=== PATIENT | male | born 1935 | race Caucasian/White ===

== ENCOUNTER 2016-09-12 11:14 | Emergency (ER) | payer MEDICARE ==
[2016-09-12] MEDS ORDERED: NS 0.9% 1000 ML* 3,000 ML IV ONE (12:11)
[2016-09-12 13:00] LABS: Troponin I 0.01 ng/mL (<0.04)
[2016-09-12] MEDS ORDERED: Iodixanol* (CONTRAST) 320 MG/ML 100 ML SDV IV ONE (13:23)
[2016-09-12 13:46] VITALS: BP 128/90
--- NOTE | 2016-09-12 14:19 | RAD ---
HISTORY: Tachycardia, elevated d-dimer COMPARISONS: None TECHNIQUE: Multiple contiguous axial CT scans of the chest were obtained after the administration of nonionic intravenous contrast, timed to the pulmonary arterial phase of contrast enhancement.. Coronal and sagittal multiplanar reformations are also submitted for review. FINDINGS: NECK AND THYROID: The lower neck and thyroid are unremarkable. CHEST WALL: There is no lower cervical, axillary, or supraclavicular lymphadenopathy by size criteria. HEART AND PERICARDIUM: The heart is unremarkable. AORTA AND PULMONARY VASCULATURE: There is no pulmonary arterial filling defect to suggest pulmonary embolism. There is no linear filling defect within the aorta to suggest aortic dissection. MEDIASTINUM: There is no mediastinal lymphadenopathy by size criteria. KELI: There is no hilar lymphadenopathy by size criteria. AIRWAY AND ESOPHAGUS: The airway is unremarkable, without endobronchial filling defect. The esophagus is grossly normal. LUNG PARENCHYMA: On axial image 27, there is a 0.3 cm nodule of the right lower lobe. There is minimal dependent atelectasis. PLEURA: No pleural abnormalities are noted. UPPER ABDOMEN: A simple hepatic cyst is noted. There is moderate hiatal hernia BONES AND SOFT TISSUES: Mild degenerative changes are noted OTHER: None. IMPRESSION: 1. NO PULMONARY ARTERIAL FILLING DEFECT TO SUGGEST PULMONARY WAS. 2. 0.3 CM NODULE OF THE RIGHT LOWER LOBE THE RECOMMENDATIONS FOR FOLLOWUP AND MANAGEMENT OF AN INCIDENTALLY DETECTED PULMONARY NODULE LESS THAN OR EQUAL TO 4 MM IN SIZE, IN A PATIENT WITHOUT A HISTORY OF MALIGNANCY, INCLUDE NO FOLLOWUP FOR A LOW-RISK PATIENT OR FOLLOWUP CT IN 12 MONTHS FOR A HIGH RISK PATIENT. 3. HIATAL HERNIA NOTES: SIZE = AVERAGE LENGTH AND WIDTH; HIGH RISK IS DEFINED A HISTORY OF SMOKING OR OTHER KNOW RISK FACTORS FOR LUNG CANCER; LOW RISK IS DEFINED MINIMAL OR ABSENT HISTORY OF SMOKING OR OTHER KNOWN RISK FACTORS. NODULES WITH A GROUND GLASS COMPONENT MAY REQUIRE LONGER FOLLOW UP TO EXCLUDE INDOLENT ADENOCARCINOMA.
--- NOTE | 2016-09-14 07:49 | ED ---
Cody Dela Cruz Billy, scribed for Regis Newell MD on 09/12/16 at 1243 . Complex/Multi-Sys Presentation - HPI Summary HPI Summary: Patient is an 81 year-old male coming to [facility] for evaluation of an episode of diffuse shaking this morning. He states that the episode lasted approximately 20 minutes, and he said it felt exactly like a a prior episode in February 2015 where he was ultimately diagnosed as sepsis. Patient's measured his temperature with a home thermometer at 94F. He also reports an ongoing cough with clear sputum. Patient denies any subjective fever or chills. Denies CP, SOB , N/V/D, rashes, dysuria, or myalgia. He states that he feels asymptomatic at this time in the ED. He had a flu shot in the last year. Patient recently returned from [place] yesterday. - History Of Current Complaint Chief Complaint: EDGeneral Time Seen by Provider: 09/12/16 12:00 Hx Obtained From: Patient Onset/Duration: Gradual Onset, Lasting Minutes, Resolved Timing: Constant Severity Currently: None Severity Initially: Moderate Aggravating Factor(s): none Alleviating Factor(s): none Associated Signs And Symptoms: Positive: Cough. Negative: Nausea, Vomiting, Diarrhea, Dysuria, Fever, Diaphoresis - Allergies/Home Medications Allergies/Adverse Reactions: Allergies Allergy/AdvReac Type Severity Reaction Status Date / Time No Known Allergies Allergy Verified 05/24/15 07:09 Home Medications: Home Medications Aspirin EC Low Dose* [Ecotrin EC Low Dose 81 MG*] 81 mg PO DAILY 09/12/16 [ History Confirmed 09/12/16] Cholecalciferol [Vitamin D] 1,000 unit PO DAILY 09/12/16 [History Confirmed ] Lisinopril [Lisinopril 40 MG-] 40 mg PO DAILY 09/12/16 [History Confirmed ] Simvastatin TAB(NF) [Zocor(NF)] 20 mg PO BEDTIME 09/12/16 [History Confirmed ] PMH/Surg Hx/FS Hx/Imm Hx Endocrine/Hematology History: Denies: Hx Diabetes Cardiovascular History: Reports: Hx Hypercholesterolemia, Hx Hypertension - ON MEDICATION FOR Respiratory History: Denies: Hx Asthma, Hx Chronic Obstructive Pulmonary Disease (COPD) Sensory History: Reports: Hx Cataracts, Hx Contacts or Glasses - GLASSES-READING , Hx Hearing Aid - BILATERAL Opthamlomology History: Reports: Hx Cataracts, Hx Contacts or Glasses - GLASSES- READING - Surgical History Surgery Procedure, Year, and Place: 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 2008-RIGHT CATARACT REMOVAL- [place]. TONSILLECTOMY X 2-1941,1964. GALLBLADDER REMOVED- FOR ECOLI INFECTION. BLADDER CYSTOSCOPY- [place] Hx Anesthesia Reactions: Yes - 194-[facility] Infectious Disease History: Reports: Traveled Outside the [place] in Last 30 Days - [place] - Family History Known Family History: Positive: Cardiac Disease - Social History Alcohol Use: Weekly Alcohol Amount: 1-2 DRINKS PER WEEK Substance Use Type: Reports: None Smoking Status (MU): Never Smoked Tobacco Review of Systems Positive: Other - shaking. Negative: Fever, Chills, Skin Diaphoresis Negative: Chest Pain Positive: Cough. Negative: Shortness Of Breath Negative: Vomiting, Diarrhea, Nausea Negative: Myalgia Negative: Rash All Other Systems Reviewed And Are Negative: Yes Physical Exam - Summary Physical Exam Summary: The patient is well-nourished in no acute distress and in no acute pain. The skin is warm and dry and skin color reflects adequate perfusion. HEENT: The head is normocephalic and atraumatic. The pupils are equal and reactive. The conjunctivae are clear and without drainage. Nares are patent and without drainage. Mouth reveals moist mucous membranes and the throat is without erythema and exudate. The external ears are intact. The ear canals are patent and without drainage. The tympanic membranes are intact. Neck is supple with full range of motion and non-tender. There are no carotid bruits. There is no neck vein distension. Respiratory: Chest is non-tender. Diffuse wheezing. Cardiovascular: Heart is regularly tachycardic. There is no murmur or rub auscultated. There is no peripheral edema and pulses are symmetrical and equal. Abdomen: The abdomen is soft and non-tender. There are normal bowel sounds heard in all four quadrants and there is no organomegaly palpated. Musculoskeletal: There is no back pain noted. Extremities are non-tender with full range of motion. There is good capillary refill. There is no peripheral edema or calf tenderness elicited. Neurological: Patient is alert and oriented to person, place and time. The patient has symmetrical motor strength in all four extremities. Cranial nerves are grossly intact. Deep tendon reflexes are symmetrical and equal in all four extremities. Psychiatric: The patient has an appropriate affect and does not exhibit any anxiety or depression. Triage Information Reviewed: Yes Vital Signs On Initial Exam: Initial Vitals Temp Pulse Resp BP Pulse Ox 98.1 F 92 18 156/85 100 09/12/16 11:18 09/12/16 11:18 09/12/16 11:18 09/12/16 11:18 09/12/16 11:18 Vital Signs Reviewed: Yes - John Coma Scale Coma Scale Total: 15 Diagnostics - Vital Signs Vital Signs Temp Pulse Resp BP Pulse Ox 09/12/16 11:18 98.1 F 92 18 156/85 100 - Laboratory Lab Results: Lab Results 09/12/16 Range/Units 12:14 INR (Anticoag Therapy) 0.93 (0.89-1.11) Lab Statement: Any lab studies that have been ordered have been reviewed, and results considered in the medical decision making process. - CT CTA chest CT Interpretation Completed By: Radiologist - 1. NO PULMONARY ARTERIAL FILLING DEFECT TO SUGGEST PULMONARY WAS. 2. 0.3 CM NODULE OF THE RIGHT LOWER LOBE THE RECOMMENDATIONS FOR FOLLOWUP AND MANAGEMENT OF AN INCIDENTALLY DETECTED PULMONARY NODULE LESS THAN OR EQUAL TO 4 MM IN SIZE, IN A PATIENT WITHOUT A HISTORY OF MALIGNANCY, INCLUDE NO FOLLOWUP FOR A LOW-RISK PATIENT OR FOLLOWUP CT IN 12 MONTHS FOR A HIGH RISK PATIENT. 3. HIATAL HERNIA NOTES: SIZE = AVERAGE LENGTH AND WIDTH; HIGH RISK IS DEFINED A HISTORY OF SMOKING OR OTHER KNOW RISK FACTORS FOR LUNG CANCER; LOW RISK IS DEFINED MINIMAL OR ABSENT HISTORY OF SMOKING OR OTHER KNOWN RISK FACTORS. NODULES WITH A GROUND GLASS COMPONENT MAY REQUIRE LONGER FOLLOW UP TO EXCLUDE INDOLENT ADENOCARCINOMA. - EKG 1219 EKG Interpretation: NSR 89 bpm, RBBB, poor R-wave progression Re-Evaluation - Re-Evaluation First Eval Re-Evaluation Time: 12:52 Change: Unchanged Comment: Labs reviewed. Agrees with plan for CTA of the chest. Second Eval Re-Evaluation Time: 14:43 Change: Unchanged Comment: CTA chest results reviewed. Patient knew about the nodule already and has been following up. Complex Multi-Symp Course/Dx Assessment/Plan: 81 year-old male coming to [facility] for evaluation of diffuse shaking this morning. He arrives in the ED essentially asymptomatic. In the ED course, patient was hydrated with IV fluids. CTA chest was reviewed as read by radiologist. EKG shows NSR, RBBB, poor R-wave progression. Influenza A and B are negative. Troponin 0.01. Labs drawn at Urgent Care earlier today showed an elevated D-Dimer. All labs and imaging were reviewed with the patient. Patient was discharged home to follow up with PCP Dr. Grove. - Diagnoses Differential Diagnoses/HQI/PQRI: Urinary Tract Infection, Other - pe, sepsis, pneumonia, influenza, dehydration Provider Diagnoses: Shaking, Tachycardia Discharge - Discharge Plan Condition: Stable Disposition: HOME Referrals: Mikey Grove MD [Primary Care Provider] - Additional Instructions: RETURN TO THE EMERGENCY ROOM WITH FEVER, CHILLS, TACHYCARDIA, MUSCLE ACHES, AND PAINS. WE WILL CALL YOU AT HOME IF THE CULTURES RETURN POSITIVE. FOLLOW UP WITH YOUR PRIMARY CARE PHYSICIAN. The documentation as recorded by the Cody chapman Billy accurately reflects the service I personally performed and the decisions made by me, Regis Newell MD.
== END 2016-09-12 15:32 | disposition home or self-care (01) ==
LOC: ED 11:14
DX: R00.0 Tachycardia, unspecified (principal); R25.1 Tremor, unspecified; R05 Cough; J02.9 Acute pharyngitis, unspecified; J06.9 Acute upper respiratory infection, unspecified; B54 Unspecified malaria; R50.9 Fever, unspecified
CPT/HCPCS: 36415; 71275; 82550; 83605; 84484; 85610; 87502; 93005; 99283; Q9967

== ENCOUNTER 2020-06-07 08:06 | Observation (INO) ==
[2020-06-07] MEDS ORDERED: NS 0.9% 1000 ml BAG 1,000 ML IV ONE (08:08)
[2020-06-07] MEDS ORDERED: Iodixanol (CONTRAST) 320 MG/ML 100 ML SDV IV ONE (08:20)
[2020-06-07] MEDS ORDERED: levETIRAcetam 1000MG IVPREMIX 1,000 MG/100 ML BAG IVPB ONE (08:30)
[2020-06-07 09:14] LABS: Activated Partial Thrombo Time 16.6 seconds (26.0-38.0); INR 0.96 (0.82-1.09)
[2020-06-07 09:18] LABS: ALT 23 U/L (7-52); Albumin 3.8 g/dL (3.2-5.2); Albumin/Globulin Ratio 1.5 (1-3); Alkaline Phosphatase 82 U/L (34-104); BUN/Creatinine Ratio 15.9 (8-20); Blood Urea Nitrogen 22 mg/dL (6-24); CO2 Carbon Dioxide 27 mmol/L (22-32); Calcium 9.1 mg/dL (8.6-10.3); Chloride 104 mmol/L (101-111); Cholesterol 135 mg/dL; EGFR African American 59.1 (>60); EGFR Non-African American 48.9 (>60); Globulin 2.6 g/dL (2-4); Glucose 168 mg/dL (70-100); HDL Cholesterol 49.9 mg/dL; LDL Cholesterol 70 mg/dL; Phosphorus 1.6 mg/dL (2.5-5.0); Sodium 138 mmol/L (135-145); Total Protein 6.4 g/dL (6.4-8.9); Triglycerides 76 mg/dL
[2020-06-07 09:20] LABS: Troponin I 0.01 ng/mL (<0.03)
[2020-06-07 09:24] LABS: ABS Eosinophils 0.1 10^3/ul (0-0.6); ABS Lymphocytes 0.9 10^3/ul (1.0-4.8); ABS Monocytes 0.7 10^3/ul (0-0.8); ABS Neutrophils 4.5 10^3/ul (1.5-7.7); Eosinophil % 1.5 %; Hematocrit 40 % (42-52); Hemoglobin 13.6 g/dL (14.0-18.0); Lymphocyte % 14.4 %; Mean Corpuscular HGB Conc 34 g/dL (31-36); Mean Corpuscular Hemoglobin 32 pg (27-31); Mean Corpuscular Volume 96 fL (80-94); Mean Platelet Volume 8.4 fL (7.4-10.4); Platelet Count 205 10^3/uL (150-450); Red Cell Distribution Width 13 % (10-15); White Blood Count 6.2 10^3/uL (3.5-10.8)
[2020-06-07 09:37] LABS: Urine Appearance Clear; Urine Bilirubin Negative (Negative); Urine Blood Negative (Negative); Urine Color Straw; Urine Glucose 1+(50 mg/dL) (Negative); Urine Ketones Negative (Negative); Urine Nitrite Negative (Negative); Urine Protein Negative (Negative); Urine Specific Gravity 1.024 (1.010-1.030); Urine Urobilinogen Negative (Negative)
[2020-06-07 09:43] LABS: Anion Gap 7 mmol/L (2-11)
[2020-06-07] MEDS ORDERED: Ondansetron 4 mg VIAL 2 MG/ML 2 ml VIAL IV PRN (10:43)
[2020-06-07] MEDS ORDERED: Magnesium Hydroxide LIQ 30 ML UDC PO PRN (10:43)
[2020-06-07] MEDS ORDERED: Enoxaparin 40 MG/0.4 ML SYR SUBCUT SCH (11:00)
[2020-06-07 14:31] VITALS: BP 116/72
[2020-06-08] MEDS ORDERED: Cholecalciferol (VIT D3) 1,000 unit TAB PO SCH (09:00)
== END 2020-06-07 18:00 | disposition home or self-care (01) ==
LOC: ED 08:06 → MEDTELE 08:06
PROVIDERS: ADMIT Hospitalist; ATTEND Hospitalist